=== PATIENT | male | born 1980 | race Caucasian/White ===

== ENCOUNTER 2016-12-07 12:22 | Emergency (ER) | payer OTHER ==
[~2016-12-07] VITALS: Ht 167.6 cm; Wt 82.2 kg
[2016-12-07 12:26] VITALS: Ht 167.6 cm; Wt 82.2 kg
[2016-12-07] MEDS ORDERED: HYDR-906 PO (12:58)
[2016-12-07] MEDS ORDERED: CEPH-443 PO (12:58)
[2016-12-07] MEDS ORDERED: IBUP-1542 PO (12:58)
[2016-12-07] MEDS ORDERED: HYDROCODONE/APAP (5/325) TAB PO ONE (13:00)
[2016-12-07] MEDS ORDERED: IBUPROFEN 600 MG TAB PO ONE (13:00)
[2016-12-07] MEDS ORDERED: CEPHALEXIN 500 MG CAP PO ONE (13:00)
--- NOTE | 2016-12-07 13:03 | ERD ---
ER Documentation Chief Complaint Date/Time DATE: 12/07/16 TIME: 13:01 Chief Complaint Complains of dental pain x 1 week HPI This 36-year-old male complaint of worsening dental pain in the left upper area for last week. Patient has a history of poor dentition and is in process of trying to arrange extraction of his remaining teeth get dentures but he is financially limited. Denies fevers, difficulty swallowing, difficulty breathing. ROS All systems reviewed and are negative except as per history of present illness. Medications Home Meds Active Scripts Ibuprofen* (Ibuprofen*) 600 Mg Tablet, 600 MG PO Q6, #20 TAB Prov:VERNA AG MD 12/07/16 Hydrocodone/Acetaminophen (Holbrook 5-325 Tablet) 1 Each Tablet, 1 EACH PO TID, # 15 TAB Prov:VERNA AG MD 12/07/16 Cephalexin* (Keflex*) 500 Mg Capsule, 500 MG PO QID for 10 Days, CAP Prov:VERNA AG MD 12/07/16 Allergies Allergies: Coded Allergies: No Known Allergy (Unverified , 12/07/16) PMhx/Soc History of Surgery: Yes (right hip surgery) Anesthesia Reaction: No Hx Neurological Disorder: No Hx Respiratory Disorders: No Hx Cardiac Disorders: No Hx Psychiatric Problems: No Hx Miscellaneous Medical Probl: No Hx Alcohol Use: No Hx Substance Use: No Hx Tobacco Use: No Smoking Status: Never smoker Physical Exam Vitals Vital Signs Date Time Temp Pulse Resp B/P Pulse Ox O2 Delivery O2 Flow Rate FiO2 12/07/16 12:26 97.5 114 20 162/101 96 Physical Exam Const: [], [id number] per Head: Atraumatic Eyes: Normal Conjunctiva ENT: Normal External Ears, Nose and Mouth. Very poor dentition with erythematous gums and several carious REMAINING NUBS IN oral cavity. Neck: Full range of motion..~ No meningismus. Resp: Clear to auscultation bilaterally Cardio: Regular rate and rhythm, no murmurs Abd: Soft, non tender, non distended. Normal bowel sounds Skin: No petechiae or rashes Back: No midline or flank tenderness Ext: No cyanosis, or edema Neur: Awake and alert Psych: Normal Mood and Affect Results 24 hrs Current Medications Medications (Trade) Dose Ordered Sig/Libby Route PRN Reason Start Time Stop Time Status Last Admin Dose Admin Acetaminophen/ Hydrocodone Bitart (Holbrook (5/325)) 1 tab ONCE ONCE PO 12/07/16 13:00 12/07/16 13:01 Ibuprofen (Motrin) 600 mg ONCE ONCE PO 12/07/16 13:00 12/07/16 13:01 Cephalexin (Keflex) 500 mg ONCE ONCE PO 12/07/16 13:00 12/07/16 13:01 Procedures/MDM Patient presents with poor dentition worsening dental pain over the last week. We discussed a short course of Holbrook, Keflex and ibuprofen and continued dental follow-up. He should return for difficulty swallowing, difficulty breathing, new symptoms. There is no evidence of sepsis or abscess currently. The patient was stable with no new complaints during the ER course. Clinically, there is no current evidence to suggest meningitis, sepsis, acute abdomen, pneumonia, acute coronary syndrome, pulmonary embolism, or any other emergent condition appearing to require further evaluation or hospitalization. The patient should certainly return for any new or worsening symptoms per the aftercare instructions. They should otherwise follow-up with her primary care doctor for reevaluation this week. Departure Diagnosis: Primary Impression: Pain, dental Condition: Stable Patient Instructions: Dental Pain Referrals: [facility] ([facility]) Additional Instructions: See dentist for further evaluation and treatment. Recheck otherwise for difficulty breathing, difficulty swallowing, new symptoms. VERNA AG MD Dec 07, 2016 13:03
== END 2016-12-07 15:29 | disposition home or self-care (01) ==
LOC: FTE 12:22
DX: K08.89 Other specified disorders of teeth and supporting structures (principal)
CPT/HCPCS: Z7502; Z7610; 99284